=== PATIENT | female | born 1985 | race Caucasian/White ===

== ENCOUNTER 2018-08-02 18:55 | Outpatient (CLI) | END 2018-08-02 21:55 | disposition home or self-care (01) ==

== ENCOUNTER 2018-11-20 00:56 | Outpatient (CLI) | payer MEDICAID ==
[~2018-11-20] VITALS: Ht 167.6 cm; Wt 79.4 kg
[~2018-11-20 00:56] MED LIST: PNV1TABL12 PO
[2018-11-20 01:40] VITALS: BP 109/71; RESP 18; Ht 167.6 cm; Wt 79.4 kg
[2018-11-20] MEDS ORDERED: MEPERIDINE 50 MG INJ IM ONE (06:30)
[2018-11-20] MEDS ORDERED: MEPERIDINE 25 MG INJ IV ONE (06:30)
[2018-11-20] MEDS ORDERED: LACTATED RINGER'S 1,000 ML IV SCH (06:30)
--- NOTE | 2018-11-20 08:20 | TRIAGE ---
OB Triage Datetime Report Generated by CPN: 11/20/2018 08:20 Datetime: 11/20/2018 08:13 Heart Rate FHR Baseline Rate: 135 Monitor Mode: External US Variability: Moderate 6-25 bpm Category: Category I Datetime: 11/20/2018 08:00 Labor Evaluation Frequency: 2-10 Monitor Mode: External Duration (sec)2399: 50-60 Quality: Mild Pattern: Normal: <= 5 Contractions in 10 Minutes Resting Tone [place]: Relaxed Heart Rate FHR Baseline Rate: 135 Monitor Mode: External US Variability: Moderate 6-25 bpm Accelerations: 15X15 Decelerations: None Category: Category I Pain Presence: None/Denies Pain Type: N/A Datetime: 11/20/2018 06:40 Stage of : OB Triage Vaginal Exam Dilatation (cms): 0.0 Exam By: GKashman, RN Datetime: 11/20/2018 06:32 Stage of : OB Triage Labor Evaluation Frequency: 2-8 Monitor Mode: External Duration (sec)2399: 40-70 Pattern: Normal: <= 5 Contractions in 10 Minutes Resting Tone [place]: Relaxed Heart Rate FHR Baseline Rate: 130 Monitor Mode: External US Variability: Moderate 6-25 bpm Accelerations: 15X15 Decelerations: None Category: Category I Datetime: 11/20/2018 06:26 Time of Arrival: 11/20/2018 00:53 EGA: 37.6 Arrived By: Wheelchair Arrived From: Emergency Dept Chief Complaint: Abdominal pain Movement: Present Contractions: Irregular Rupture of Membranes: Denies Vaginal Bleeding: None Vaginal Discharge: Denies Recent Sexual Intercouse: Denies Abdominal Trauma: Not Applicable Patient Complaints: Contractions; Other Time Provider Notified: 11/20/2018 02:20 Provider Notified: Ardalan Initial Plan: VS, EFM, SVE Datetime: 11/20/2018 05:31 Stage of : OB Triage Labor Evaluation Frequency: 2-7 Monitor Mode: External Duration (sec)2399: 40-80 Pattern: Normal: <= 5 Contractions in 10 Minutes Resting Tone [place]: Relaxed Heart Rate FHR Baseline Rate: 135 Monitor Mode: External US Variability: Moderate 6-25 bpm Accelerations: 15X15 Decelerations: None Category: Category I Pain Assessment Pain Scale: 8 Pain Presence: Intermittent Pain Type: Ache Pain Location: Abdomen; Back Pain Relief Measures: Comfort Measures Datetime: 11/20/2018 04:30 Stage of : OB Triage Labor Evaluation Frequency: 1.5-6 Monitor Mode: External Duration (sec)2399: 40-80 Pattern: Normal: <= 5 Contractions in 10 Minutes Resting Tone [place]: Relaxed Heart Rate FHR Baseline Rate: 135 Monitor Mode: External US Variability: Moderate 6-25 bpm Accelerations: 15X15 Decelerations: None Category: Category I Pain Assessment Pain Scale: 8 Pain Presence: Intermittent Pain Type: Ache Pain Location: Abdomen; Back Pain Relief Measures: Comfort Measures Datetime: 11/20/2018 03:31 Stage of : OB Triage Labor Evaluation Frequency: Irregular Monitor Mode: External Pattern: Normal: <= 5 Contractions in 10 Minutes Resting Tone [place]: Relaxed Heart Rate FHR Baseline Rate: 135 Monitor Mode: External US Variability: Moderate 6-25 bpm Accelerations: 15X15 Decelerations: None Category: Category I Datetime: 11/20/2018 02:30 Stage of : OB Triage Labor Evaluation Frequency: Irreg Monitor Mode: External Duration (sec)2399: 40-60 Pattern: Normal: <= 5 Contractions in 10 Minutes Resting Tone [place]: Relaxed Heart Rate FHR Baseline Rate: 135 Monitor Mode: External US Variability: Moderate 6-25 bpm Accelerations: 15X15 Decelerations: None Category: Category I Datetime: 11/20/2018 01:49 Vaginal Exam Dilatation (cms): 0.0 Exam By: FAINA, RN Datetime: 11/20/2018 01:30 Stage of : OB Triage Assessment Type: Triage Maternal Assessment Level of Consciousness: Fully Conscious DTR's/Clonus: DTRs 2+; No Clonus Headache: Denies Blurred Vision: No Respiratory Effort: Unlabored; Regular Rhythm; Equal Expansion Breath Sounds, Left: Clear and Equal Breath Sounds, Right: Clear and Equal Nausea/Vomiting: Denies RUQ Epigastric Pain: Denies Lower Extremities Edema: None Degree: None Upper Extremities Edema: None Degree: None Facial Edema: None Temperature Route: Oral Fall Risk Assessment History of Falling: (0) No Secondary Diagnosis: (0) No Ambulatory Aid: (0) Bedrest/Nurse Assist IV Therapy: (0) No Gait: (0) Normal/Bedrest/Immobile Mental Status: (0) Oriented to Own Ability Fall Score: 0 Fall Risk Score Definition: No Risk: No action required Labor Evaluation Frequency: irreg Monitor Mode: External Duration (sec)2399: 40-60 Resting Tone [place]: Relaxed Heart Rate FHR Baseline Rate: 140 Monitor Mode: External US Variability: Moderate 6-25 bpm Accelerations: 15X15 Decelerations: None Category: Category I Pain Assessment Pain Scale: 8 Pain Presence: Intermittent Pain Type: Ache Pain Location: Abdomen; Back Pain Relief Measures: Comfort Measures
--- NOTE | 2018-11-20 16:39 | PN ---
Triage Information Date/Time Reason for visit: Uterine contractions Weeks of Gestation 37 weeks and 6 days /Para Diabetes: none Hypertention: none Additional information 33 years old with IUP at 37 weeks and 6 days presented due to abdominal pain and cramps she denies any leaking of fluid, vaginal bleeding or decreased movement. Objective Vital Signs Date Temp Pulse Resp B/P (MAP) Pulse Ox O2 O2 Flow FiO2 Time Delivery Rate 11/20/18 98.6 18 109/71 Room Air 01:40 (84) Heart Rate: 130's Heart Rate Comments Category 1 Contractions: < 5 Minutes Apart Exam Appearance: Alert and oriented x4 appears to be in mild to moderate distress Abdomen: Soft, gravid, fundal height consider gestational age no tenderness, no rebound tenderness, no guarding, no rigidity NST: Category 1 Contractions irregularly seen on the monitor Results/Medications Result Diagram: 11/20/18 0346 11/20/18 0346 Results 24 hrs Laboratory Tests Test 11/20/18 00:05 11/20/18 03:46 Urine Color YELLOW Urine Clarity CLOUDY A Urine pH 7.0 Urine Specific [place] 1.011 Urine Ketones NEGATIVE Urine Nitrite NEGATIVE Urine Bilirubin NEGATIVE Urine Urobilinogen NEGATIVE Urine Leukocyte Esterase NEGATIVE Urine Microscopic RBC 0 Urine Microscopic WBC 2 Urine Squamous Epithelial Cells FEW Urine Amorphous Crystals FEW A Urine Bacteria FEW A Urine Hemoglobin NEGATIVE Urine Glucose NEGATIVE Urine Total Protein NEGATIVE White Blood Count 10.3 Red Blood Count 3.69 L Hemoglobin 11.1 L Hematocrit 33.2 L Mean Corpuscular Volume 90.0 Mean Corpuscular Hemoglobin 30.1 Mean Corpuscular Hemoglobin Concent 33.4 Red Cell Distribution Width 13.1 Platelet Count 224 Mean Platelet Volume 9.5 Immature Granulocytes % 0.400 Neutrophils % 78.7 H Lymphocytes % 16.0 Monocytes % 4.5 Eosinophils % 0.2 Basophils % 0.2 Nucleated Red Blood Cells % 0.0 Immature Granulocytes # 0.040 H Neutrophils # 8.1 H Lymphocytes # 1.7 Monocytes # 0.5 Eosinophils # 0.0 Basophils # 0.0 Nucleated Red Blood Cells # 0.0 Sodium Level 139 Potassium Level 4.1 Chloride Level 107 Carbon Dioxide Level 24 Anion Gap 8 Blood Urea Nitrogen 6 L Creatinine 0.40 L Est Glomerular Filtrat Rate mL/min > 60 Glucose Level 97 Calcium Level 9.1 Imaging Results PROCEDURE: US OB biophysical profile. CLINICAL INDICATION: abdominal pain TECHNIQUE: Multiple sonographic images of the pelvis were obtained. The images were reviewed on a PACS workstation. COMPARISON: 10/01/2018 FINDINGS: Single live intrauterine gestation. MADALYN = 7.83 cm. Cardiac activity is present with 137 beats per minute. Cephalic presentation. Placental location is anterior. No evidence of previa or abruption. Biophysical profile as follows: movement 2/2 tone 2/2 breathing 2/2 MADALYN 2/2 Total 06/18 IMPRESSION: Biophysical profile 06/18. Disposition: Discharge Assessment/Plan IUP at 37 weeks and 6 days False labor pain No evidence of cervical change noted Due to symptomatic contractions, with no cervical change a dose of Demerol IM and IV with promethazine was given to the patient with adequate hydration Symptoms resolved Patient was asymptomatic after observation and above treatment Amniotic fluid index: 7.37 cm borderline Patient will be discharged home Labor precautions kick count and follow-up in 3 days again in triage with repeat MADALYN and testing discussed the patient or sooner as needed recurring of her contractions, decreased movement vaginal bleeding or any other concerns Patient verbalized understanding. All questions were answered to patient's best satisfaction Patient also will inform her primary OB office within 72 hours after discharge from the hospital about this episodes of encounter in triage for any other follow-up plan in the office that might be required by primary OB JIMI LAGUNAS MD Nov 20, 2018 16:39
== END 2018-11-20 08:32 | disposition home or self-care (01) ==
LOC: OBT 00:56 → L-D 00:58 → OBT 08:32
PROVIDERS: ATTEND Obstetrics & Gynecology
DX: O62.9 Abnormality of forces of labor, unspecified (principal); Z3A.37 37 weeks gestation of pregnancy
CPT/HCPCS: 36415; 76818; 80048; 81001; 85025; 96360; J2175; J7120; Z7500; G0463

== ENCOUNTER 2018-11-22 16:15 | Outpatient (CLI) | payer MEDICAID ==
[~2018-11-22] VITALS: Ht 167.6 cm; Wt 79.0 kg
[2018-11-22 16:30] VITALS: Ht 167.6 cm; Wt 79.0 kg
[2018-11-22 16:31] VITALS: BP 98/70; PULSE 83; RESP 20
--- NOTE | 2018-11-22 18:09 | TRIAGE ---
OB Triage Datetime Report Generated by CPN: 11/22/2018 18:09 Datetime: 11/22/2018 16:37 Time of Arrival: 11/22/2018 16:10 EGA: 38.1 Arrived By: Ambulatory Arrived From: Home Chief Complaint: F/U ABD PAIN Movement: Present Rupture of Membranes: Denies Vaginal Bleeding: None Vaginal Discharge: Denies Recent Sexual Intercouse: Denies Abdominal Trauma: Not Applicable Patient Complaints: None Provider Notified: HADADIAN Initial Plan: EFM,CALL DR HADADIAN Datetime: 11/22/2018 16:36 Maternal Assessment Level of Consciousness: Fully Conscious DTR's/Clonus: DTRs 2+; No Clonus Headache: Denies Blurred Vision: No Respiratory Effort: Unlabored; Regular Rhythm; Equal Expansion Breath Sounds, Left: Clear and Equal Breath Sounds, Right: Clear and Equal Nausea/Vomiting: Denies RUQ Epigastric Pain: Denies Facial Edema: None Temperature Route: Axillary Fall Risk Assessment History of Falling: (0) No Secondary Diagnosis: (0) No Ambulatory Aid: (0) Bedrest/Nurse Assist IV Therapy: (0) No Gait: (0) Normal/Bedrest/Immobile Mental Status: (0) Oriented to Own Ability Fall Score: 0 Fall Risk Score Definition: No Risk: No action required Datetime: 11/22/2018 16:26 Maternal Assessment Level of Consciousness: Fully Conscious DTR's/Clonus: DTRs 2+ Headache: Denies Blurred Vision: No Nausea/Vomiting: Denies RUQ Epigastric Pain: Denies Facial Edema: None Labor Evaluation Frequency: OCCAS Monitor Mode: External Quality: Mild Pattern: Normal: <= 5 Contractions in 10 Minutes Resting Tone [place]: Relaxed Heart Rate FHR Baseline Rate: 145 Monitor Mode: External US FHR Baseline Changes: No Baseline Change Variability: Moderate 6-25 bpm Accelerations: 15X15 Decelerations: None Category: Category I Pain Assessment Pain Scale: 0 Pain Presence: None/Denies Pain Type: N/A Pain Location: Abdomen Pain Goal: 0 Vaginal Exam Membrane Status: Intact Datetime: 11/20/2018 06:26 EGA: 37.6 Datetime: 11/20/2018 01:30 Fall Score: 0 Fall Risk Score Definition: No Risk: No action required
--- NOTE | 2018-11-22 23:43 | PN ---
Triage Information Date/Time November 22, 2018 Reason for visit: Patient here today for follow-up of abdominal pain. She was seen 2 days ago in triage Weeks of Gestation 38 weeks and 1 day /Para 1 para 0 Diabetes: none Hypertention: none Additional information 33-year-old with IUP at 38 weeks and 1 day presented 2 days ago due to abdominal pain to triage and here today for follow-up of abdominal pain. She denies any leaking of fluid, vaginal bleeding decreased movement or uterine contractions. Denies any complaint today. Objective Vital Signs Date Temp Pulse Resp B/P (MAP) Pulse Ox O2 O2 Flow FiO2 Time Delivery Rate 11/22/18 98.3 83 20 98/70 (79) Room Air 16:31 Heart Rate: 130's Heart Rate Comments Category 1 tracing Contractions: None Exam General appearance: Alert and oriented x4 does not appear to be in any acute distress Abdomen: Soft, gravid, fundal height consider gestational age in no tenderness, no dependence, no guarding, no rigidity, no evidence of acute abdomen NST: Category 1 No contraction on the monitor Disposition: Discharge Assessment/Plan IUP at 38 weeks and 1 day Doing well NST category 1 Asymptomatic. Patient denies any abdominal pain Follow-up with primary OB office as needed and as a scheduled for OB visit discussed with patient All questions were answered to patient's best satisfaction Labor precautions and kick count discussed with patient JIMI LAGUNAS MD Nov 22, 2018 23:43
== END 2018-11-22 18:15 | disposition home or self-care (01) ==
LOC: OBT 16:15 → L-D 16:15 → OBT 18:15
PROVIDERS: ATTEND Obstetrics & Gynecology
DX: O26.893 Other specified pregnancy related conditions, third trimester (principal); R10.9 Unspecified abdominal pain; Z3A.38 38 weeks gestation of pregnancy
CPT/HCPCS: 76816; 76818; Z7500; G0463

== ENCOUNTER 2018-12-02 20:00 | Outpatient (CLI) | payer MEDICAID ==
[~2018-12-02] VITALS: Ht 167.6 cm; Wt 80.9 kg
[2018-12-02 20:00] VITALS: Ht 167.6 cm; Wt 80.9 kg
[2018-12-02 20:12] VITALS: BP 117/76; PULSE 83; RESP 18
--- NOTE | 2018-12-02 22:04 | PN ---
Triage Information Date/Time Reason for visit: size date discrepancy Weeks of Gestation 39 weeks /Para Diabetes: none Hypertention: none Objective Heart Rate: 120's Heart Rate Comments Reactive Exam Cervix closed Results/Medications Imaging Results [facility] 06/18 Disposition: Discharge Assessment/Plan Follow up with ROSENDO Sutton MD Dec 02, 2018 22:04
--- NOTE | 2018-12-03 00:26 | TRIAGE ---
OB Triage Datetime Report Generated by CPN: 12/03/2018 00:25 Datetime: 12/02/2018 21:54 Labor Evaluation Frequency: 2-9 Monitor Mode: External Duration (sec)2399: 40-140 Quality: Mild Pattern: Normal: <= 5 Contractions in 10 Minutes Resting Tone [place]: Relaxed Heart Rate FHR Baseline Rate: 140 Monitor Mode: External US Variability: Moderate 6-25 bpm Accelerations: 15X15 Decelerations: None Category: Category I Datetime: 12/02/2018 21:00 Labor Evaluation Frequency: 2-6 Monitor Mode: External Duration (sec)2399: 50-90 Quality: Mild Pattern: Normal: <= 5 Contractions in 10 Minutes Resting Tone [place]: Relaxed Heart Rate FHR Baseline Rate: 140 Monitor Mode: External US Variability: Moderate 6-25 bpm Accelerations: 15X15 Decelerations: None Category: Category I Datetime: 12/02/2018 20:58 Monitor Mode: External Monitor Mode: External US Datetime: 12/02/2018 20:39 Monitor Mode: External US Comments: NST - reactive Datetime: 12/02/2018 20:12 Stage of : OB Triage Temperature Route: Oral Pain Assessment Pain Scale: 0 Pain Presence: Intermittent Pain Type: Cramping Pain Location: lower abdomen Datetime: 12/02/2018 20:10 Monitor Mode: External Monitor Mode: External US Datetime: 12/02/2018 20:09 Stage of : OB Triage Assessment Type: Triage Maternal Assessment Level of Consciousness: Fully Conscious DTR's/Clonus: DTRs 2+; No Clonus Headache: Denies Blurred Vision: No Respiratory Effort: Unlabored; Regular Rhythm; Equal Expansion Breath Sounds, Left: Clear and Equal Breath Sounds, Right: Clear and Equal Nausea/Vomiting: Denies RUQ Epigastric Pain: Denies Lower Extremities Edema: None Degree: None Upper Extremities Edema: None Degree: None Facial Edema: None Fall Risk Assessment History of Falling: (0) No Secondary Diagnosis: (0) No Ambulatory Aid: (0) Bedrest/Nurse Assist IV Therapy: (0) No Gait: (0) Normal/Bedrest/Immobile Mental Status: (0) Oriented to Own Ability Fall Score: 0 Fall Risk Score Definition: No Risk: No action required Datetime: 12/02/2018 20:00 Time of Arrival: 12/02/2018 19:55 EGA: 39.2 Arrived By: Ambulatory Arrived From: Dr. [place] Chief Complaint: pt sent here from clinic for NST, BPP, EFW Movement: Present Contractions: Denies/Absent Rupture of Membranes: Denies Vaginal Bleeding: None Vaginal Discharge: Denies Recent Sexual Intercouse: Denies Abdominal Trauma: Not Applicable Patient Complaints: None Time Provider Notified: 12/02/2018 20:10 Provider Notified: HADADIAN Initial Plan: EFM, NST, BPP, EFW Datetime: 11/22/2018 16:37 EGA: 37.6 Datetime: 11/22/2018 16:36 Fall Score: 0 Fall Risk Score Definition: No Risk: No action required Datetime: 11/20/2018 06:26 EGA: 37.4 Datetime: 11/20/2018 01:30 Fall Score: 0 Fall Risk Score Definition: No Risk: No action required
== END 2018-12-02 22:32 | disposition home or self-care (01) ==
LOC: L-D 20:00 → OBT 20:00
PROVIDERS: ATTEND Obstetrics & Gynecology
DX: O26.843 Uterine size-date discrepancy, third trimester (principal); Z3A.39 39 weeks gestation of pregnancy
CPT/HCPCS: 76815; 76818; Z7500; G0463

== ENCOUNTER 2019-03-01 01:12 | Emergency (ER) | payer MEDICAID ==
[~2019-03-01] VITALS: Ht 167.6 cm; Wt 74.2 kg
[2019-03-01 01:17] VITALS: Ht 167.6 cm; Wt 74.2 kg
[2019-03-01] MEDS ORDERED: SOD CHLORIDE 0.9% 500 ML IV STA (02:04)
[2019-03-01] MEDS ORDERED: ONDANSETRON 4 MG INJ IV STA (02:04)
[2019-03-01] MEDS ORDERED: morphine 4 MG/ML VIAL IV STA (02:04)
[2019-03-01] MEDS ORDERED: NAPR-985 PO (05:05)
--- NOTE | 2019-03-01 05:10 | ERD ---
ER Documentation Chief Complaint Chief Complaint abdominal pain/vomiting/diarrhea x 2 days HPI 33yo F presents to ED with complaint of abdominal pain and vomiting x 2 days. Pt states pain is located to RUQ and radiates to back, rates pain as a 9/10 sharp pain. Pt also admits to 4 episodes vomiting in the past 24 hours, last episode at 4pm this afternoon. Notes last tolerated meal today at 7pm. Pt taking pepto- bismol for symptoms with no improvement. Pt notes symptoms began after eating faroese bread with cream. Denies urinary symptoms or diarrhea. Pt is 3 months post . Denies any chronic medical conditions. Non-smoker. ROS All systems reviewed and are negative except as per history of present illness. Medications Home Meds Active Scripts Naproxen* (Naprosyn*) 500 Mg Tablet, 500 MG PO BID PRN for PAIN AND/OR INFLAMMATION, #30 TAB Prov:SAMMY HORNER PA-C 03/01/19 Reported Medications Pnv Cmb#21/Iron/Folic Acid ( Complete Caplet) 1 Each Tablet, 1 EACH PO DAILY, TAB 08/02/18 Allergies Allergies: Coded Allergies: No Known Allergy (Unverified , 12/02/18) PMhx/Soc History of Surgery: Yes (C SECTION 12/09/18) Hx Alcohol Use: No Hx Substance Use: No Hx Tobacco Use: No Smoking Status: Never smoker Physical Exam Vitals Vital Signs Date Temp Pulse Resp B/P (MAP) Pulse Ox O2 O2 Flow FiO2 Time Delivery Rate 03/01/19 98.3 61 18 110/72 100 Room Air 05:15 (85) 03/01/19 98.9 67 18 111/73 97 01:17 (86) Physical Exam General: alert, oriented X 3, no acute distress, well developed, well nourished, hydration normal Head/Eyes: atraumatic, normocephalic, PERRL, EOMI ENT: moist mucous membranes, normal pharynx Neck: supple/no meningismus, non-tender, full range of motion, no thyromegaly Respiratory/Chest: CTAB. no distress, normal breath sounds, no accessory muscle use Cardiovascular: regular rate and rhythm, normal heart sounds, no murmurs, rubs or gallops. Normal distal pulses. Abdomen: TTP RUQ with guarding. No RLQ or LLQ Tenderness. Normal bowel sounds. Extremities: non-tender, no swelling, full range of motion Back: full range of motion, painless range of motion Skin: no rash, warm, dry Neurologic: alert, oriented X 3, CN II-XII intact, normal speech, no motor deficits, no sensory deficits, reflexes equal bilat, normal gait Psychiatric: normal mood, normal affect Result Diagram: 03/01/19 0216 03/01/19 0216 Results 24 hrs Laboratory Tests Test 03/01/19 02:16 03/01/19 02:28 White Blood Count 9.8 10^3/ul Red Blood Count 4.40 10^6/ul Hemoglobin 12.4 g/dl Hematocrit 37.6 % Mean Corpuscular Volume 85.5 fl Mean Corpuscular Hemoglobin 28.2 pg Mean Corpuscular Hemoglobin Concent 33.0 g/dl Red Cell Distribution Width 13.0 % Platelet Count 304 10^3/UL Mean Platelet Volume 8.8 fl Immature Granulocytes % 0.200 % Neutrophils % 76.9 % Lymphocytes % 17.3 % Monocytes % 4.7 % Eosinophils % 0.6 % Basophils % 0.3 % Nucleated Red Blood Cells % 0.0 /100WBC Immature Granulocytes # 0.020 10^3/ul Neutrophils # 7.5 10^3/ul Lymphocytes # 1.7 10^3/ul Monocytes # 0.5 10^3/ul Eosinophils # 0.1 10^3/ul Basophils # 0.0 10^3/ul Nucleated Red Blood Cells # 0.0 10^3/ul Prothrombin Time 12.6 Sec Prothrombin Time Ratio 1.0 INR International Normalized Ratio 0.93 Activated Partial Thromboplast Time 28.4 Sec Urine Color LUIZ Urine Clarity SLIGHTLY CLOUDY Urine pH 7.0 Urine Specific [place] 1.028 Urine Ketones NEGATIVE mg/dL Urine Nitrite NEGATIVE mg/dL Urine Bilirubin 1+ mg/dL Urine Urobilinogen 2+ mg/dL Urine Leukocyte Esterase 1+ Jesus/ul Urine Microscopic RBC 3 /HPF Urine Microscopic WBC 12 /HPF Urine Squamous Epithelial Cells MODERATE /HPF Urine Mucus FEW /HPF Urine Hemoglobin 1+ mg/dL Urine Glucose NEGATIVE mg/dL Urine Total Protein NEGATIVE mg/dl Sodium Level 144 mmol/L Potassium Level 3.9 mmol/L Chloride Level 103 mmol/L Carbon Dioxide Level 28 mmol/L Anion Gap 13 Blood Urea Nitrogen 10 mg/dl Creatinine 0.41 mg/dl Est Glomerular Filtrat Rate mL/min > 60 mL/min Glucose Level 97 mg/dl Calcium Level 9.1 mg/dl Total Bilirubin 1.5 mg/dl Direct Bilirubin 0.00 mg/dl Indirect Bilirubin 1.5 mg/dl Aspartate Amino Transf (AST/SGOT) 120 IU/L Alanine Aminotransferase (ALT/SGPT) 102 IU/L Alkaline Phosphatase 92 IU/L Total Protein 7.7 g/dl Albumin 4.5 g/dl Globulin 3.20 g/dl Albumin/Globulin Ratio 1.40 Lipase 71 U/L POC Beta HCG, Qualitative NEGATIVE Current Medications Medications Dose Sig/[place] Start Time Status Last (Trade) Ordered Route PRN Stop Time Admin Dose Reason Admin Sodium 500 ml @ Q1H STAT 03/01/19 DC 03/01/19 Chloride 500 mls/hr IV 02:04 02:56 03/01/19 03:03 Morphine 4 mg ONCE STAT 03/01/19 DC 03/01/19 Sulfate IV 02:04 02:55 (morphine) 03/01/19 02:08 Ondansetron 4 mg ONCE STAT 03/01/19 DC 03/01/19 HCl (Zofran IV 02:04 02:55 Inj) 03/01/19 02:08 Procedures/MDM PROCEDURE: ULTRASOUND LIMITED ABDOMEN CLINICAL INDICATION: 33-year-old female with abdominal pain. TECHNIQUE: Multiple sonographic of the right upper quadrant of the abdomen were obtained. The images were reviewed on a PACS workstation. COMPARISON: None. FINDINGS: The pancreas is partially visualized and is otherwise without abnormal echogenicity. The liver displays normal echogenicity. The liver measures 17.6 cm in length. No evidence of intrahepatic biliary ductal dilatation is seen. The portal and hepatic veins are unremarkable. The gallbladder contains multiple small layering shadowing stones. The gallbladder wall thickness is within normal limits measuring 2.2 mm. No pericholecystic fluid is seen. The common bile duct measures 4.6 mm and is not dilated. The right kidney displays normal echogenicity. The right kidney measures 10.5 cm in maximal length. No caliectasis or hydronephrosis is seen. No free fluid is seen. IMPRESSION: Cholelithiasis. MDM: This is a 33yo F who presents to the ED for evaluation of abdominal pain and vomiting. Vitals reviewed and WNL, pt afebrile. Physical exam revealed pain with palpation of the RUQ. US imaging positive for Cholelithiasis with no evidence bile duct obstruction. Labs revealed bilirubin of 1.5, elevated LFTS, but no white count. While in ED pt received IV fluids, Morphine 4mg IV, and Zo destiny 4mg IV. Pt noted marked improvement in symptoms while in ED. Discussed case with Dr. Ghosh who also reviewed pt imaging and labs, as well as examined pt s/p work-up. Dr. Ghosh agreed pt stable for discharge with outpatient management and NSAIDs for pain. Advised pt to return if pain worsens or fails to improve within in the next 8 hours, as pt may need further workup and/or admission if pain persists. Counseled patient regarding diet and lifestyle modifications. Pt expressed verbal understanding and agreement to treatment plan. All questions addressed and answered. Departure Diagnosis: Primary Impression: Cholelithiasis Cholelithiasis location: gallbladder Cholecystitis presence: without cholecystitis Biliary obstruction: without biliary obstruction Qualified Codes: K80.20 - Calculus of gallbladder without cholecystitis without obstruction Condition: Stable Patient Instructions: Gallstones SAMMY HORNER PA-C Mar 01, 2019 05:10
[2019-03-01 05:15] VITALS: BP 110/72; PULSE 61; RESP 18
== END 2019-03-01 05:16 | disposition home or self-care (01) ==
LOC: FTE 01:12
DX: K80.20 Calculus of gallbladder without cholecystitis without obstruction (principal)
CPT/HCPCS: 36415; 76705; 80053; 81001; 81025; 83690; 85025; 85610; 85730; 96361; 96374; 96375; J2270; J2405; J7040; Z7502